=== PATIENT | female | born 1950 | race Caucasian/White ===

== ENCOUNTER → 2022-08-09 | Day surgery (SDC) | payer MEDICARE, OTHER ==
--- NOTE | 2022-08-15 08:44 | MM ---
Reason for Exam: Post Procedure Mammogram. Risk Values: Carissa 5 year model risk: 1.2%. NCI Lifetime model risk: 2.9%. Tissue Density: Right: The breast tissue is heterogeneously dense. This may lower the sensitivity of mammography. Pathology Description: Location: 11 o'clock. Marker Left Behind. Needle Type: Mammotome Cores: 5 Gauge: 13 The procedure of ultrasound guided core biopsy was explained to the patient. Benefits, alternatives, and risks were discussed. An informed consent was then obtained. The patient was placed in supine positioning for imaging and for the procedure. The overlying skin was prepped and draped in usual sterile fashion. Lidocaine was used as anesthetic into the skin and subcutaneous tissue up to area of concern in the 11:00 right breast. The small 8 x 4 x 3 mm oval hypoechoic lesion, 5 cm from the nipple is identified and targeted for biopsy. Under ultrasound guidance, a 13-gauge vacuum-assisted mammotome Elite biopsy gun was used to obtain 5 core samples. Following this, a HydroMark coil clip was left at the site of biopsy. The sampling largely removed the entire lesion. The patient tolerated the procedure well without any immediate complication. The patient was kept in the radiology department for short stay after the procedure and then discharged home in stable condition. Postprocedure mammogram: The patient was transferred to mammography for physician ordered post procedure mammogram for clip placement verification. Postprocedure mammogram shows clip in place. We do not have patient's outside prior mammograms to assess for any mammographic correlate to the ultrasound finding. Pathology pending. IMPRESSION: Successful, uncomplicated ultrasound guided core biopsy of the nonspecific 8 mm hypoechoic lesion at 11:00 right breast. Low overall suspicion for malignancy. Full pathology results to follow. Pathology Results: Result: Benign, Fibroadenoma. RIGHT BREAST, ELEVEN O'CLOCK, ULTRASOUND GUIDED NEEDLE CORE BIOPSY: Fibroadenoma. Overall Assessment: Benign Assessment: MG diagnostic mammo RT wo CAD - Right: Benign, BI-RAD 2. Management: Diagnostic Mammogram of the right breast in 6 months. Diagnostic Breast Ultrasound of the right breast in 6 months. Electronically signed and approved by: Emily Collins M.D. Radiologist
== END ==
LOC: RADUSWWP 12:33
PROVIDERS: ATTEND Surgery
DX: D24.1 Benign neoplasm of right breast (principal)
CPT/HCPCS: 19083; 88305; 77065; A4648

== ENCOUNTER → 2022-08-30 | Outpatient (CLI) | payer OTHER ==
--- NOTE | 2022-08-30 14:37 | P.GSHP ---
History of Present Illness H&P Date: 08/30/22 Chief Complaint: Fibroadenoma right breast Patricia is a 72-year-old [place] [address]. This revealed an area of asymmetry in the upper aspect of the right breast. [place] [address]. This revealed a 9 x 5 x 3 mm lesion at 11:00 for which stereotactic core biopsy [place] [address] and pathology revealed a fibroadenoma. Patient does not feel any lumps masses or nodules of concern in either breast. At the age of 24 she had a right breast biopsy surgical and this was benign. She is not complaining of any nipple discharge or skin changes. CAffiene: none nicotine: stopped at 34 chocolate: none Family History: none of cancer Hormonal History: menarche: 8 , breast fed: no, age at : 20 menarche: 44 hormones: 5 years on prempro BCP: until 39 Surgical History: tonsil appy Diabetes HTN recent bone fractures Medical History: COPD worked in [employer] Social History: nicotine: stopped at 34 alcohol: none drugs: none - Constitutional Constitutional: Denies chills, Denies fever - EENT Eyes: denies blurred vision, denies pain Ears: deny: decreased hearing, tinnitus Ears, nose, mouth and throat: Denies headache, Denies sore throat - Breasts Breasts: bilateral: as per HPI - Cardiovascular Cardiovascular: Reports shortness of breath, Denies chest pain - Respiratory Comment: COPD - Gastrointestinal Gastrointestinal: Denies abdominal pain, Denies diarrhea, Denies nausea, Denies vomiting - Genitourinary (Female) Genitourinary: Denies dysuria, Denies hematuria - Menstruation Menstruation: Reports postmenopausal - Musculoskeletal Comment: 8 compound fractures Musculoskeletal: Denies myalgias - Integumentary Integumentary: Denies pruritus, Denies rash - Neurological Neurological: Denies numbness, Denies weakness - Psychiatric Psychiatric: Reports anxiety, Denies depression - Endocrine Endocrine: Denies fatigue, Denies weight change - Hematologic/Lymphatic Comment: none - Allergic/Immunologic Allergic/Immunologic: Reports as per HPI Past Medical History Past Medical History: Diabetes Mellitus, Hypertension Additional Past Medical History / Comment(s): emphazema History of Any Multi-Drug Resistant Organisms: None Reported Past Surgical History: No Surgical Hx Reported Past Psychological History: Anxiety, Depression Smoking Status: Never smoker Past Alcohol Use History: Rare Past Drug Use History: None Reported Medications and Allergies Home Medications Medication Instructions Recorded Confirmed Type ALPRAZolam [Xanax] 1 mg PO TID PRN 08/03/22 08/03/22 History Budesonide 0.5 mg INHALATION BID 08/03/22 08/03/22 History Budesonide-Formot 160-4.5 Mcg 2 puff INHALATION 08/03/22 History [Symbicort 160-4.5 Mcg Inhaler] Divalproex [Depakote] 250 mg PO DAILY 08/03/22 08/03/22 History Escitalopram [Lexapro] 10 mg PO DAILY 08/03/22 08/03/22 History Furosemide [Lasix] 1 tab PO DAILY 08/03/22 08/03/22 History Potassium Chloride [K-Tab ER] 10 meq PO DAILY 08/03/22 08/03/22 History QUEtiapine [SEROquel] 1 tab PO DAILY 08/03/22 08/03/22 History Steroid 08/03/22 History dilTIAZem HCL [Cardizem] 1 tab PO DAILY 08/03/22 08/03/22 History metFORMIN HCL [Glucophage] 1 tab PO DAILY 08/03/22 08/03/22 History Allergies Allergy/AdvReac Type Severity Reaction Status Date / Time cyclobenzaprine AdvReac Anaphylaxis Verified 08/03/22 11:11 [From Flexeril] steroids AdvReac Unknown Uncoded 08/03/22 11:28 Surgical - Exam - General moderate distress - Eyes normal ocular movement - Neck trachea midline - Respiratory uses oxygen, decreased breath sounds - Cardiovascular Heart Sounds: normal: S1, S2 - Abdomen Abdomen: soft - Integumentary normal turgor - Neurologic no disoriented, no combative - Musculoskeletal difficulty with gait secondary to SOB - Psychiatric oriented to time, oriented to person, oriented to place, speech is normal, memory intact Breast Exam: BRA: 38C Inspection: bilateral grade 3 ptosis palpation: right breast: multi-positional exam bruising at the 12 o'clock position with approximately a 2 cm area of palpable fullness no other dominant masses or nodules of concern Right axilla: No adenopathy of concern Left breast: Multi-positional exam no dominant masses or nodules of concern Left axilla: No adenopathy of concern Results Mammogram reviewed Assessment and Plan Assessment: Impression: Probable fibroadenoma right breast 11:00 Fibrocystic breast changes COPD Diabetes Plan: Repeat right breast mammogram and examination in 6 months Repeat right breast ultrasound in 6 months Patient to follow up sooner any questions or concerns CC: Dr. Rivero
== END ==
LOC: WWCWWP 14:09
PROVIDERS: ATTEND Surgery
DX: N60.11 Diffuse cystic mastopathy of right breast (principal); J44.9 Chronic obstructive pulmonary disease, unspecified; E11.9 Type 2 diabetes mellitus without complications; I10 Essential (primary) hypertension; Z79.84 Long term (current) use of oral hypoglycemic drugs; Z88.8 Allergy status to other drugs, medicaments and biological substances; Z79.51 Long term (current) use of inhaled steroids

== ENCOUNTER → 2022-12-13 | Outpatient (CLI) | payer OTHER ==
--- NOTE | 2022-12-13 12:48 | USB ---
Reason for Exam: Hx of benign breast biopsy. Patient History: 08/09/2022, Benign US biopsy breast VAD RT on the right side. Risk Values: Carissa 5 year model risk: 1.4%. NCI Lifetime model risk: 3.4%. Prior Study Comparison: 08/09/2022 Right MG diagnostic mammo RT wo CAD, [facility]. Findings: The upper outer quadrant of the right breast, the axilla of the right breast and the retroareolar of the right breast were scanned. Clip is noted at the site of prior biopsy with surrounding small amount of fluid. This is located at the right 11:00 position 5 cm from the nipple. No solid masses seen.. Overall Assessment: Benign, BI-RAD 2 Management: Screening Mammogram of both breasts in 7 months. A clinical breast exam by your physician is recommended on an annual basis and results should be correlated with mammographic findings. This exam should not preclude additional follow-up of suspicious palpable abnormalities. Results were given to the patient verbally at the time of exam. Electronically signed and approved by: Yrn Neville M.D. Radiologis
--- NOTE | 2022-12-13 13:49 | P.PN ---
Subjective Progress Note Date: 12/13/22 Principal diagnosis: fibroadenoma right breast History of Present Illness Chief Complaint: Fibroadenoma right breast/stable Patricia is a 72-year-old white female [place] [address]. This revealed an area of asymmetry in the upper aspect of the right breast. [place] [address]. This revealed a 9 x 5 x 3 mm lesion at 11:00 for which stereotactic core biopsy [place] [address] and pathology revealed a fibroadenoma. Patient does not feel any lumps masses or nodules of concern in either breast. At the age of 24 she had a right breast biopsy surgical and this was benign. She is not complaining of any nipple discharge or skin changes. Patient's ultrasound and mammogram were reviewed with Dr. Collins. It is felt that the area sampled most likely corresponds to the Which is palpable. To be certain however we are going to repeat an ultrasound over the site of palpable abnormality at her next visit which will be informed months instead of 6 months. repeat ultrasound of the right breast done on 12-13-22; BIRAD 2 The patient does not feel any new lumps masses or nodules of concern in either breast. She would like to have her next set of mammograms performed here. CAffiene: none nicotine: stopped at 34 chocolate: none Family History: none of cancer Hormonal History: menarche: 8 , breast fed: no, age at : 20 menarche: 44 hormones: 5 years on prempro BCP: until 39 Surgical History: tonsil appy Diabetes HTN recent bone fractures Medical History: COPD worked in [employer] Social History: nicotine: stopped at 34 alcohol: none drugs: none - Constitutional Constitutional: Denies chills, Denies fever - EENT Eyes: denies blurred vision, denies pain Ears: deny: decreased hearing, tinnitus Ears, nose, mouth and throat: Denies headache, Denies sore throat - Breasts Breasts: bilateral: as per HPI - Cardiovascular Cardiovascular: Reports shortness of breath, Denies chest pain - Respiratory Comment: COPD - Gastrointestinal Gastrointestinal: Denies abdominal pain, Denies diarrhea, Denies nausea, Denies vomiting - Genitourinary (Female) Genitourinary: Denies dysuria, Denies hematuria - Menstruation Menstruation: Reports postmenopausal - Musculoskeletal Comment: 8 compound fractures Musculoskeletal: Denies myalgias - Integumentary Integumentary: Denies pruritus, Denies rash - Neurological Neurological: Denies numbness, Denies weakness - Psychiatric Psychiatric: Reports anxiety, Denies depression - Endocrine Endocrine: Denies fatigue, Denies weight change - Hematologic/Lymphatic Comment: none - Allergic/Immunologic Allergic/Immunologic: Reports as per HPI Past Medical History Past Medical History: Diabetes Mellitus, Hypertension Additional Past Medical History / Comment(s): emphazema History of Any Multi-Drug Resistant Organisms: None Reported Past Surgical History: No Surgical Hx Reported Past Psychological History: Anxiety, Depression Smoking Status: Never smoker Past Alcohol Use History: Rare Past Drug Use History: None Reported Medications and Allergies Home Medications Medication Instructions Recorded Confirmed Type ALPRAZolam [Xanax] 1 mg PO TID PRN 08/03/22 08/03/22 History Budesonide 0.5 mg INHALATION BID 08/03/22 08/03/22 History Budesonide-Formot 160-4.5 Mcg 2 puff INHALATION 08/03/22 History [Symbicort 160-4.5 Mcg Inhaler] Divalproex [Depakote] 250 mg PO DAILY 08/03/22 08/03/22 History Escitalopram [Lexapro] 10 mg PO DAILY 08/03/22 08/03/22 History Furosemide [Lasix] 1 tab PO DAILY 08/03/22 08/03/22 History Potassium Chloride [K-Tab ER] 10 meq PO DAILY 08/03/22 08/03/22 History QUEtiapine [SEROquel] 1 tab PO DAILY 08/03/22 08/03/22 History Steroid 08/03/22 History dilTIAZem HCL [Cardizem] 1 tab PO DAILY 08/03/22 08/03/22 History metFORMIN HCL [Glucophage] 1 tab PO DAILY 08/03/22 08/03/22 History Allergies Allergy/AdvReac Type Severity Reaction Status Date / Time cyclobenzaprine AdvReac Anaphylaxis Verified 08/03/22 11:11 [From Flexeril] steroids AdvReac Unknown Uncoded 08/03/22 11:28 Objective - Constitutional General appearance: Present: cooperative - EENT Eyes: Present: EOMI ENT: Present: hearing grossly normal - Neck Neck: Present: normal ROM - Cardiovascular Heart sounds: normal: S1, S2 - Integumentary Integumentary: Present: normal turgor - Musculoskeletal Musculoskeletal Comment(s): uses a walker - Psychiatric Psychiatric: Present: A&O x's 3, appropriate affect, intact judgment & insight - Additional findings Additional findings: Breast exam: deferred as per patient until next visit Assessment and Plan Assessment: Impression: fibroadenoma right breast 11:00 Fibrocystic breast changes COPD Diabetes Plan: bilateral mammogram in 7 months with physician exam at that time Patient will follow up sooner if any questions or concerns CC: Dr. Rivero
== END | disposition home or self-care (01) ==
LOC: RADUSWWP 12:13
PROVIDERS: ATTEND Surgery
DX: N63.10 Unspecified lump in the right breast, unspecified quadrant (principal)